=== PATIENT | female | born 1985 ===

== ENCOUNTER 2017-11-30 21:58 | Emergency (ER) | payer OTHER, MEDICAID ==
[2017-11-30 22:23] VITALS: BMI 34.3
[2017-11-30 22:24] VITALS: BP 113/74; PULSE 81; RESP 17; TEMP 98.9; O2SAT 99
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
== END 2017-11-30 23:20 | disposition home or self-care (01) ==
LOC: ED 21:58
DX: O9A.211 Injury, poisoning and certain other consequences of external causes complicating pregnancy, first trimester (principal); S29.012A Strain of muscle and tendon of back wall of thorax, initial encounter; M62.89 Other specified disorders of muscle; Z3A.01 Less than 8 weeks gestation of pregnancy; V49.9XXA Car occupant (driver) (passenger) injured in unspecified traffic accident, initial encounter; Y92.410 Unspecified street and highway as the place of occurrence of the external cause